=== PATIENT | male | born 1995 | race Caucasian/White ===

== ENCOUNTER 2021-01-26 11:30 | Emergency (ER) | payer OTHER ==
[~2021-01-26] VITALS: Ht 180.3 cm; Wt 99.8 kg
[2021-01-26 11:32] VITALS: BP 141/78
== END 2021-01-26 12:55 | disposition home or self-care (01) ==
LOC: ER 11:30
DX: K52.9 Noninfective gastroenteritis and colitis, unspecified (principal); Z90.89 Acquired absence of other organs; Z88.0 Allergy status to penicillin